=== PATIENT | female | born 1970 | race African-American/Black ===

== ENCOUNTER 2018-07-01 01:27 | Emergency (ER) | payer SELFPAY ==
[~2018-07-01] VITALS: Ht 170.2 cm; Wt 49.9 kg
[~2018-07-01 01:27] MED LIST: AMLODIPINE BESYL5 MG ORAL; GABAPENTIN300 MG ORAL; LOSARTAN POTASS25 MG ORAL; PROAIR HFA8.5 GM INH; VITAMIN B-1100 MG ORAL
[2018-07-01 01:55] VITALS: BP 163/93
[2018-07-01] MEDS ORDERED: Morphine Sulfate 4mg/ml Inj (IV/IM USE ONLY) IM ONE (02:15)
--- NOTE | 2018-07-01 02:17 | Emergency Room Report ---
History of Present Illness General Chief Complaint: Dizziness Source: Patient Present Illness HPI Is a 48-year-old female who is right-hand dominant. She presents with chief complaint of right arm pain. Unknown trauma. She was drinking tonight. She was in the shower and she said she must have blacked out because she woke up on the floor. She didn't complain of right arm pain. Pain is severe. Mostly to the shoulder and upper arm. 10 out of 10. Worse with movement. Denies any other complaint. Allergies: Coded Allergies: No Known Allergies (Unverified , 03/25/18) Patient History Past Medical History: see triage record, old chart reviewed Pertinent Family History: none Social History: Reports: smoking, alcohol use Last Menstrual Period: 2 years ago Now: No Immunizations: other Reviewed Nursing Documentation: PMH: Agreed; PSxH: Agreed Nursing Documentation-PMH Hx Cardiac Problems: Yes Hx Hypertension: Yes Hx Asthma: Yes Hx Cancer: No Hx Gastrointestinal Problems: Yes Hx Neurological Problems: Yes - neuropathy Review of Systems Eye: Denies: eye pain, blurred vision ENT: Denies: ear pain, nose congestion, throat swelling Respiratory: Denies: cough, shortness of breath Cardiovascular: Denies: chest pain, palpitations Gastrointestinal: Denies: abdominal pain, diarrhea, nausea, vomiting Musculoskeletal: Reports: joint pain, muscle pain; Denies: back pain Skin: Denies: rash Neurological: Denies: headache, numbness Endocrine: Denies: increased thirst, increased urine Hematologic/Lymphatic: Denies: easy bruising All Other Systems: negative except mentioned in HPI Physical Exam Vital Signs Date Time Temp Pulse Resp B/P (MAP) Pulse Ox O2 Delivery O2 Flow Rate FiO2 07/01/18 01:44 98.1 85 16 163/93 94 Room Air vitals with high blood pressure Sp02 EP Interpretation: reviewed, normal General Appearance: well appearing, no apparent distress, alert, other - Strong smell of alcoholic beverage on breath Head: normocephalic, atraumatic Eyes: bilateral eye PERRL, bilateral eye EOMI ENT: hearing grossly normal, normal pharynx Neck: full range of motion, supple, no meningismus Respiratory: chest non-tender, lungs clear, normal breath sounds Cardiovascular #1: regular rate, rhythm, no murmur Gastrointestinal: normal bowel sounds, non tender, no mass, no organomegaly, no bruit, non-distended Musculoskeletal: back normal, gait/station normal, tender - Patient has diffuse tenderness to the proximal humerus. Decreased range of motion secondary to pain. No ecchymosis. No deformity. Sensation normal. Psychiatric: other - Patient was very rude and combative. She was cursing nursing staff as they were triaging her. She was yelling at me when I tried to take a history. She would not give me a clear-cut history. Skin: warm/dry Procedures Splinting Splinting : Consent: Verbal Location: rt arm Pre-Made Type: sling Pre-Proc Neuro Vasc Exam: normal Post-Proc Neuro Vasc Exam: normal Patient Tolerated: Well Complications: None Medical Decision Making Diagnostic Impression: Primary Impression: Arm pain, right ER Course Patient presents with right arm pain. I seen no evidence of any trauma. There is no swelling. There is no ecchymosis. Unknown cause of her pain. Patient placed in a sling. Told patient that x-rays only look at bones. She may have soft tissue injury or ligament injury that would not be seen on x-rays. If that is the case, if not better we'll need MRI as an outpatient. Other X-Ray Diagnostic Results Other X-Ray Diagnostic Results : X-Ray ordered: X-rays right humerus # of Views/Limited Vs Complete: 4 View Indication: Pain EP Interpretation: Yes Interpretation: no dislocation, no soft tissue swelling, no fractures Impression: No acute disease Electronically Signed by: Mayank Hart MD Last Vital Signs Date Time Temp Pulse Resp B/P (MAP) Pulse Ox O2 Delivery O2 Flow Rate FiO2 07/01/18 01:44 98.1 85 16 163/93 94 Room Air Status: improved Disposition: HOME, SELF-CARE Condition: Stable Scripts Ibuprofen* (MOTRIN*) 600 Mg Tablet 600 MG ORAL THREE TIMES A DAY, #30 TAB 0 Refills Prov: Mayank Hart MD 07/01/18 Additional Instructions: Ice pack to the area. Then warm compress. Wear sling for comfort. Follow-up with your doctor within a week. If not better, may knee MRI. Return if worse. Mayank Hart MD Jul 01, 2018 02:17
--- NOTE | 2018-07-01 02:17 | NUR ---
ED Nurse Note: pt walked in c/o of right arm pain due to fall per pt she doesnt remember what happened. pt said "elders saw me fall" pain is 10/10
[2018-07-01] MEDS ORDERED: IBUPROFEN600 MG ORAL (02:42)
--- NOTE | 2018-07-01 03:10 | NUR ---
ED Nurse Note: Pt is cleared to be d/c per ERMD, pt discharge instruction and prescription was provided but pt refused to leave ED until pastoral views her xray per pt's statement. charge nurse/ERMD notified.
[2018-07-01 03:15] VITALS: BP 163/93
--- NOTE | 2018-07-01 03:15 | NUR ---
ED Nurse Note: PT WAS GIVEN DC INSTRUCTIONS AND PRESCRIPTION, PT WAS REFUSED PRESCRIPTION AND REFUSED TO LEAVE ED. PT PULLED OUT CELLPHONE AND BEGAN TO RECORD. PT WAS ASKING FOR NURSES AND STAFF FIRST AND LAST NAMES. ATTEMTPED TO CALM PATIENT DOWN AND EXPLAIN DC PAPERS. SECURITY IS AT BEDSIDE, DUE TO PT YELLING AND REFUSING DC. PT REFUSED TO SIGN AGAIN. PT TOOK PRESCRIPTION AND WAS ESCORTED BY SECURITY. PT TOOK ALL BELONINGS AND ID BAND REMOVED. PT WAS GIVEN A TAXI VOUCHER.
--- NOTE | 2018-07-01 11:29 | Diagnostic Imaging Report ---
Indication: Right arm trauma pain Findings: 2 views of the right humerus were obtained. No acute fractures, malalignment, erosions or periostitis are identified. Bone mineralization is within normal limits. Soft tissues are unremarkable. Impression: Negative examination of the humerus
== END 2018-07-01 03:15 | disposition home or self-care (01) ==
LOC: EMR 01:39
DX: M79.601 Pain in right arm (principal); I10 Essential (primary) hypertension; J45.909 Unspecified asthma, uncomplicated; G62.9 Polyneuropathy, unspecified
CPT/HCPCS: 73060; 96372; 99283; J2270

== ENCOUNTER 2019-11-03 18:33 | Emergency (ER) | payer MEDICAID, OTHER ==
[~2019-11-03] VITALS: Ht 170.2 cm; Wt 58.1 kg
[~2019-11-03 18:33] MED LIST changes: +IBUPROFEN600 MG ORAL
[2019-11-03 19:15] VITALS: BP 128/77
--- NOTE | 2019-11-03 19:15 | NUR ---
ED Nurse Note: Pt walked into ED for c/o lower back/sacral area pain that radiates down to bilat legs onset a week ago. Pt notes pain is worse when sitting for extended periods of time. Pt notes pain is burning in nature. She states she also has had a JOSHI, difficulty urinating/having a bowel movement. Pt spoke with PCP today through a telehealth visit and was advised to come into ED. Pt is aaox4, breathing is normal and unlabored. NAD noted.
[2019-11-03] MEDS ORDERED: Omnipaque-300 100ml vial INJ PRN (19:30)
--- NOTE | 2019-11-03 20:15 | NUR ---
ED Nurse Note: Pt taken to MRI.
[2019-11-03 20:31] LABS: APPEARANCE,URINE CLEAR; BILIRUBIN, URINE NEGATIVE (NEGATIVE); GLUCOSE, URINE (UA) NEGATIVE (NEGATIVE); KETONES,URINE NEGATIVE (NEGATIVE); LEUKOCYTE ESTERASE ,URINE 1+ (NEGATIVE); NITRITE,URINE NEGATIVE (NEGATIVE); PH,URINE 6 (4.5-8.0); PROTEIN,URINE NEGATIVE (NEGATIVE); UROBILINOGEN,URINE 1 MG/DL (0.0-1.0)
[2019-11-03 20:32] LABS: ANION GAP 11 mmol/L (5-15); BLOOD UREA NITROGEN 17 mg/dL (7-18); CALCIUM 8.7 MG/DL (8.5-10.1); CARBON DIOXIDE 26 MMOL/L (21-32); CHLORIDE 106 MMOL/L (98-107); POTASSIUM 3.1 MMOL/L (3.5-5.1); SODIUM 143 MMOL/L (136-145)
[2019-11-03 20:35] LABS: COLOR,URINE YELLOW
[2019-11-03 20:36] LABS: ALANINE AMINOTRANSFERASE 51 U/L (12-78); ALBUMIN 3.3 G/DL (3.4-5.0); ALBUMIN/GLOBULIN RATIO 0.9 (1.0-2.7); ALKALINE PHOSPHATASE 76 U/L (46-116); ASPARTATE AMINO TRANSFERASE 38 U/L (15-37); BILIRUBIN,TOTAL 0.1 MG/DL (0.2-1.0)
[2019-11-03 20:39] LABS: HEMATOCRIT 38.8 % (37.0-47.0); HEMOGLOBIN 11.9 G/DL (12.0-16.0); MEAN CORPUSCULAR VOLUME 116 FL (80-99); PLATELET COUNT 176 K/UL (150-450); RED BLOOD COUNT 3.35 M/UL (4.20-5.40); RED CELL DISTRIBUTION WIDTH 12.6 % (11.6-14.8); WHITE BLOOD COUNT 8.2 K/UL (4.8-10.8)
[2019-11-03 20:40] LABS: EOSINOPHILS % (AUTO) 2.2 % (0.0-3.0); LYMPHOCYTES % (AUTO) 34.4 % (20.0-45.0); NEUTROPHILS % (AUTO) 52.3 % (45.0-75.0)
--- NOTE | 2019-11-03 21:19 | Diagnostic Imaging Report ---
EXAM: MR Lumbar Spine Without Intravenous Contrast CLINICAL HISTORY: PAIN TECHNIQUE: Magnetic resonance images of the lumbar spine without intravenous contrast in multiple planes. COMPARISON: No relevant prior studies available. FINDINGS: Normal marrow signal. No focal lesion. No acute fracture. The conus terminates at L1-2. Normal appearance of the distal cord and cauda equina nerve roots. Pars defects bilaterally at L5 which results in grade 1 anterolisthesis at L5-S1. Disc desiccation at this level. Remainder of the disc heights are maintained. DISCS/SPINAL CANAL/NEURAL FORAMINA: L1-L2: Unremarkable. No significant disc disease. No stenosis. L2-L3: Unremarkable. No significant disc disease. No stenosis. L3-L4: Unremarkable. No significant disc disease. No stenosis. L4-L5: Unremarkable. No significant disc disease. No stenosis. L5-S1: Anterolisthesis with disc desiccation and marked facet hypertrophy. No significant canal stenosis. Moderate left and mild right foraminal stenosis.. IMPRESSION: Degenerative changes most pronounced at L5-S1 where there is spondylolysis and spondylolisthesis resulting in moderate left neural foraminal stenosis..
--- NOTE | 2019-11-03 21:43 | Diagnostic Imaging Report ---
EXAM: CT Cervical Spine Without Intravenous Contrast CLINICAL HISTORY: TRAUMA TECHNIQUE: Axial computed tomography images of the cervical spine without intravenous contrast. CTDI is 4 mGy and DLP is 100 mGy-cm. One or more of the following dose reduction techniques were used: automated exposure control, adjustment of the mA and/or kV according to patient size, use of iterative reconstruction technique. COMPARISON: No relevant prior studies available. FINDINGS: Vertebrae: Unremarkable. No acute fracture. Soft tissues: Unremarkable. IMPRESSION: No fracture within the cervical spine.
--- NOTE | 2019-11-03 21:49 | Diagnostic Imaging Report ---
EXAM: CT Thoracic Spine Without Intravenous Contrast CLINICAL HISTORY: TRAUMA TECHNIQUE: Axial computed tomography images of the thoracic spine without intravenous contrast. CTDI is 7.9 mGy and DLP is 434 mGy-cm. One or more of the following dose reduction techniques were used: automated exposure control, adjustment of the mA and/or kV according to patient size, use of iterative reconstruction technique. COMPARISON: No relevant prior studies available. FINDINGS: Vertebrae: Unremarkable. No acute fracture. Soft tissues: Unremarkable. IMPRESSION: No fracture or malalignment.
--- NOTE | 2019-11-03 22:01 | Emergency Room Report ---
History of Present Illness General Chief Complaint: Pain Source: Patient Present Illness HPI 49-year-old female with no symptom past medical history here complaining of few days of 10 out of 10 lower back pain with radiating to posterior thighs and feeling numbness in both feet. 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 Has not taken medication for symptom relief. Also complains of constipation and dysuria. Denies any saddle paresthesia, urinary or bowel incontinence. Denies chest pain, shortness of breath, diffuse abdominal pain, diarrhea,, nausea vomiting at this time. Her doctor sent her here to have cauda equina syndrome ruled out. Denies . No unilateral generalized weakness noted. Patient is neurovascularly intact. 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 Patient History Past Medical History: see triage record Past Surgical History: none Pertinent Family History: none Now: No Immunizations: UTD Reviewed Nursing Documentation: PMH: Agreed; PSxH: Agreed Nursing Documentation-PMH Past Medical History: No History, Except For Hx Cardiac Problems: Yes Hx Hypertension: Yes Hx Asthma: Yes Hx Cancer: No Hx Gastrointestinal Problems: Yes Hx Neurological Problems: Yes - neuropathy Review of Systems All Other Systems: negative except mentioned in HPI Physical Exam Vital Signs Date Time Temp Pulse Resp B/P (MAP) Pulse Ox O2 Delivery O2 Flow Rate FiO2 11/03/19 19:12 98.2 74 18 128/77 (94) 99 Room Air Sp02 EP Interpretation: reviewed, normal General Appearance: no apparent distress, alert, GCS 15, non-toxic Head: normocephalic, atraumatic Eyes: bilateral eye normal inspection, bilateral eye PERRL ENT: hearing grossly normal, normal pharynx, no angioedema, normal voice Neck: full range of motion, supple/symm/no masses Respiratory: chest non-tender, lungs clear, normal breath sounds, no rhonchi, no respiratory distress, speaking full sentences Cardiovascular #1: regular rate, rhythm, no edema, no murmur Cardiovascular #2: 2+ carotid (R), 2+ carotid (L), 2+ radial (R), 2+ radial (L) , 2+ dorsalis pedis (R), 2+ dorsalis pedis (L) Gastrointestinal: normal bowel sounds, non tender, soft, non-distended, no guarding, no rebound Genitourinary: no CVA tenderness Musculoskeletal: back normal, normal range of motion, no calf tenderness, non- tender, other - Straight leg test positive left leg Neurologic: alert, motor strength/tone normal, oriented x3, sensory intact, responsive, speech normal Psychiatric: judgement/insight normal, memory normal, mood/affect normal, no suicidal/homicidal ideation Skin: no rash Lymphatic: no adenopathy Medical Decision Making PA Attestation All my diagnosis and treatment plans were reviewed ad discussed with my supervising physician Dr. Napoles Diagnostic Impression: Primary Impression: Lumbar strain Additional Impressions: Sciatic pain UTI (urinary tract infection) Constipation ER Course 49-year-old female with no symptom past medical history here complaining of few days of 10 out of 10 lower back pain with radiating to posterior thighs and feeling numbness in both feet. 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 Has not taken medication for symptom relief. Also complains of constipation and dysuria. Denies any saddle paresthesia, urinary or bowel incontinence. Denies chest pain, shortness of breath, diffuse abdominal pain, diarrhea,, nausea vomiting at this time. Her doctor sent her here to have cauda equina syndrome ruled out. Denies . No unilateral generalized weakness noted. Patient is neurovascularly intact. Denies tobacco smoke, marijuana use, drug use, however reports that she drinks alcohol and has history of enlarged liver Ddx considered but are not limited to: Cauda equina syndrome, compression fracture, disc dislocation, sciatic pain, lumbar spine sprain, strain, fracture , contusion, neuropathy Vital signs: are WNL, pt. is afebrile H&PE are most consistent with: Lumbar strain, sciatic pain, UTI, constipation ORDERS: Lumbar spine MRI no contrast, L-spine CT no contrast, C-spine CT no contrast, T-spine CT no contrast, Tylenol 3, ibuprofen, Robaxin ER intervention: Toradol, Robaxin, Tylenol No. 3 DISCHARGE: At this time pt. is stable for d/c to home. Will provide printed patient care instructions, and any necessary prescriptions. Care plan and follow up instructions have been discussed with the patient prior to discharge. Patient to follow primary doctor auto transmission specialist, take medication as directed, if worsening symptoms return to the emergency room. At this time acute causes of her symptoms have been ruled out patient is further evaluation this time. No cauda equina syndrome noted. CT/MRI/US Diagnostic Results CT/MRI/US Diagnostic Results #1: Imaging Test Ordered: MRI L spine no contrast Impression DISCS/SPINAL CANAL/NEURAL FORAMINA: L1-L2: Unremarkable. No significant disc disease. No stenosis. L2-L3: Unremarkable. No significant disc disease. No stenosis. L3-L4: Unremarkable. No significant disc disease. No stenosis. L4-L5: Unremarkable. No significant disc disease. No stenosis. L5-S1: Anterolisthesis with disc desiccation and marked facet hypertrophy. No significant canal stenosis. Moderate left and mild right foraminal stenosis.. IMPRESSION: Degenerative changes most pronounced at L5-S1 where there is spondylolysis and spondylolisthesis resulting in moderate left neural foraminal stenosis.. CT/MRI/US Diagnostic Results #2: Imaging Test Ordered: CT C-spine no contrast Impression COMPARISON: No relevant prior studies available. FINDINGS: Vertebrae: Unremarkable. No acute fracture. Soft tissues: Unremarkable. IMPRESSION: No fracture within the cervical spine. CT/MRI/US Diagnostic Results #3: Imaging Test Ordered: CT L-spine no contrast Impression COMPARISON: No relevant prior studies available. FINDINGS: Vertebrae: No fracture within the lumbar spine. Grade 2 anterolisthesis at L5- S1 where there is advanced facet arthropathy. Soft tissues: Unremarkable. IMPRESSION: No fracture or malalignment. CT/MRI/US Diagnostic Results #4: Imaging Test Ordered: CT T-spine no contrast Impression FINDINGS: Vertebrae: Unremarkable. No acute fracture. Soft tissues: Unremarkable. IMPRESSION: No fracture or malalignment. Last Vital Signs Date Time Temp Pulse Resp B/P (MAP) Pulse Ox O2 Delivery O2 Flow Rate FiO2 11/03/19 19:15 98.2 74 18 128/77 99 Room Air Disposition: HOME, SELF-CARE Condition: Stable Scripts Acetaminophen With Codeine (T#3) (TYLENOL #3 TAB*) Y Tab 1 TAB ORAL Q8HR PRN for For Pain for 3 Days, #10 TAB Prov: Lela Quiñones 11/03/19 Ibuprofen* (MOTRIN*) 600 Mg Tablet 600 MG ORAL Q8H PRN for FOR PAIN, #20 TAB 0 Refills Prov: Lela Quiñones 11/03/19 Methocarbamol* (ROBAXIN-500*) 500 Mg Tablet 500 MG ORAL TID PRN for For Pain, #15 TAB 0 Refills Prov: Lela Quiñones 11/03/19 Nitrofurantoin Monohyd/M-Cryst* (MACROBID 100 MG*) 100 Mg Capsule 100 MG ORAL EVERY 12 HOURS for 7 Days, #14 CAP Prov: Lela Quiñones 11/03/19 Docusate Sodium* (COLACE*) 100 Mg Capsule 100 MG ORAL DAILY, #10 CAP Prov: Lela Quiñones 11/03/19 Referrals: [facility]ERR[facility] (PCP) Patient Instructions: Constipation, Adult, [id number], Lumbosacral Strain, Sciatica, [id number], Urinary Tract Infection, [id number] Additional Instructions: Take medication as directed, follow with primary doctor for referral to auto transmission specialist and physical therapy, if worsening symptoms return to the emergency room. Lela Quiñones Nov 03, 2019 22:01
[2019-11-03] MEDS ORDERED: NITROFURANTOIN100 M2 ORAL (22:02)
[2019-11-03] MEDS ORDERED: COLACE100 MG ORAL (22:02)
[2019-11-03] MEDS ORDERED: IBUPROFEN600 M1 ORAL (22:02)
[2019-11-03] MEDS ORDERED: ROBAXIN-500MG ORAL (22:02)
--- NOTE | 2019-11-03 22:07 | Diagnostic Imaging Report ---
EXAM: CT Lumbar Spine Without Intravenous Contrast CLINICAL HISTORY: TRAUMA TECHNIQUE: Axial computed tomography images of the lumbar spine without intravenous contrast. CTDI is 7.9 mGy and DLP is 434.2 mGy-cm. One or more of the following dose reduction techniques were used: automated exposure control, adjustment of the mA and/or kV according to patient size, use of iterative reconstruction technique. COMPARISON: No relevant prior studies available. FINDINGS: Vertebrae: No fracture within the lumbar spine. Grade 2 anterolisthesis at L5-S1 where there is advanced facet arthropathy. Soft tissues: Unremarkable. IMPRESSION: No fracture or malalignment.
[2019-11-03] MEDS ORDERED: ACETAMINOPHEN-1 EAC1 ORAL (22:09)
[2019-11-03] MEDS ORDERED: Methocarbamol 750mg tab ORAL ONE (22:15)
[2019-11-03] MEDS ORDERED: Ketorolac 30mg Inj IV ONE (22:15)
[2019-11-03] MEDS ORDERED: Tylenol #3 tab (300mg/30mg) ORAL ONE (22:15)
[2019-11-03 22:40] VITALS: BP 125/74
--- NOTE | 2019-11-03 22:40 | NUR ---
ER DISCHARGE NOTE: Patient is cleared to be discharged per ERMD, pt is aox4, on room air, with stable vital signs. pt was given dc and prescription instructions, pt was able to verbalize understanding, pt id band and iv site removed without complications. pt is able to ambulate with steady gait. pt took all belongings.
== END 2019-11-03 22:40 | disposition home or self-care (01) ==
LOC: EMR 19:10
DX: S39.012A Strain of muscle, fascia and tendon of lower back, initial encounter (principal); W19.XXXA Unspecified fall, initial encounter; Y92.9 Unspecified place or not applicable; I10 Essential (primary) hypertension; N39.0 Urinary tract infection, site not specified; K59.00 Constipation, unspecified; G62.9 Polyneuropathy, unspecified; M54.30 Sciatica, unspecified side; M47.817 Spondylosis without myelopathy or radiculopathy, lumbosacral region
CPT/HCPCS: 36415; 72125; 72128; 72131; 72148; 80053; 81003; 81025; 85025; 85610; 85651; 85730; 86140; 96374; J1885; Z7502; 99284